=== PATIENT | female | born 1990 | race Two or more races ===

== ENCOUNTER 2016-08-22 17:31 | Emergency (ER) | payer BC ==
[~2016-08-22] VITALS: Ht 165.1 cm; Wt 101.2 kg
[2016-08-22 18:25] LABS: BLOOD UREA NITROGEN 11 mg/dL (7-18)
[2016-08-22 18:32] LABS: IS PT STATUS REG ER OR PRE ER? YES
[2016-08-22 21:06] VITALS: BP 106/74
== END 2016-08-22 21:08 | disposition home or self-care (01) ==
LOC: ED 21:02
DX: R07.89 Other chest pain (principal); R06.4 Hyperventilation
CPT/HCPCS: 36415; 71010; 80048; 82040; 84484; 84703; 85025; 93005; 99285

== ENCOUNTER 2017-09-01 09:35 | Emergency (ER) | payer BC, OTHER ==
[~2017-09-01] VITALS: Ht 167.6 cm; Wt 97.8 kg
[2017-09-01 10:18] LABS: BASOPHILS # (AUTO) 0.01 x10^3/uL (0-0.1); BASOPHILS % (AUTO) 0 % (0-1); EOSINOPHILS # (AUTO) 0.11 x10^3/uL (0-0.4); EOSINOPHILS % (AUTO) 1 % (1-7); LYMPHOCYTES # (AUTO) 2.49 x10^3/uL (1-3.4); LYMPHOCYTES % (AUTO) 30 % (22-44); MD NO; MEAN CORPUSCULAR HGB CONC 33.3 g/dL (32.4-35.8); MEAN CORPUSCULAR VOLUME 87.2 fL (80-100); MEAN PLATELET VOLUME 7.9 fL (7.4-10.4); MONOCYTES # (AUTO) 0.37 x10^3/uL (0.2-0.8); MONOCYTES % (AUTO) 5 % (2-9); NEUTROPHILS # (AUTO) 5.21 x10^3/uL (1.8-6.8); NEUTROPHILS % (AUTO) 64 % (42-75); PLATELET COUNT 372 x10^3/uL (130-400); RED BLOOD COUNT 5.03 x10^6/uL (3.82-5.3)
[2017-09-01] MEDS ORDERED: SODIUM CHLORIDE FLUSH 10ML SYR IVF ONE (10:30)
[2017-09-01] MEDS ORDERED: SODIUM CHLORIDE 0.9% 1,000ML IVBOLUS ONE (10:30)
[2017-09-01 10:31] LABS: ALBUMIN 3.5 g/dL (3.4-5.0); ANION GAP 9 mmol/L (5-15); CALCIUM 9.2 mg/dL (8.5-10.1); CHLORIDE 111 mmol/L (98-107); CREATININE 0.82 mg/dL (0.55-1.02)
[2017-09-01 10:42] VITALS: BP 124/62
== END 2017-09-01 11:24 | disposition home or self-care (01) ==
LOC: ED 11:00
DX: N92.4 Excessive bleeding in the premenopausal period (principal); R55 Syncope and collapse
CPT/HCPCS: 36415; 76830; 80048; 82040; 84703; 85025; 93005; 99285

== ENCOUNTER 2019-02-04 14:45 | Emergency (ER) | payer OTHER ==
[~2019-02-04] VITALS: Ht 167.6 cm; Wt 101.0 kg
--- NOTE | 2019-02-04 15:06 | NUR ---
Note [email or web address] in ED - 02/04/19 at 1507 by CAROL CALLED PHARMACY AND SPOKE TO RUBÉN ABOUT MISSED DOSES OF MORNING MEDS. PER RUBÉN, GIVE MORNING MEDS NOW, AND RESCHEDULE EVENING DOSE UNTIL AROUND 2300 TO SPACE MEDICATIONS APPROPRIATELY.
--- NOTE | 2019-02-04 15:16 | NUR ---
PT IN GOWN IN [facility] AND ATTACHED TO [employer]ACH[employer]ES. PT EDUCATED ON ER PROCESS AND POC AND VERBALIZES UNDERSTANDING. CALL LIGHT IS WITHIN REACH. URINE COLLECTED AND TUBED TO LAB. PT DENIES ANY OTHER NEEDS AT THIS TIME.
[2019-02-04 15:39] LABS: MICROSCOPIC AUTO
--- NOTE | 2019-02-04 15:41 | NUR ---
Patient back from [facility] via [employer] [facility] at this time. Pending results. Call light within reach.
[2019-02-04 15:42] LABS: CULTURE INDICATED? NO
[2019-02-04 15:46] LABS: RAPID INFLUENZA A Negative (Negative); RAPID INFLUENZA B POSITIVE (Negative)
[2019-02-04 16:16] VITALS: BP 118/83
== END 2019-02-04 16:18 | disposition home or self-care (01) ==
LOC: ED 16:10
DX: J10.1 Influenza due to other identified influenza virus with other respiratory manifestations (principal); F41.1 Generalized anxiety disorder; M79.10 Myalgia, unspecified site; R50.81 Fever presenting with conditions classified elsewhere; R30.9 Painful micturition, unspecified
CPT/HCPCS: 71046; 81001; 87400; 99284